=== PATIENT | female | born 1965 | race Caucasian/White ===

== ENCOUNTER 2021-05-27 06:19 | Day surgery (SDC) | payer OTHER ==
[~2021-05-27] VITALS: Ht 175.3 cm; Wt 99.8 kg
[2021-05-27] MEDS ORDERED: CLINDAMYCIN PHOS 600 MG/ D5W 50 ML PREMIX IV ONE (07:15)
[2021-05-27] MEDS ORDERED: CEFAZOLIN SOD 2 GM in D5W 50 ML IV ONE (07:15)
[2021-05-27] MEDS ORDERED: GLYCOPYRROLATE 0.2 MG/ML VIAL ONE (08:33)
[2021-05-27] MEDS ORDERED: MIDAZOLAM HCL 5 MG/5 ML VIAL ONE (08:33)
[2021-05-27] MEDS ORDERED: CLINDAMYCIN PHOSPHATE 600 mg/50mL D5W IV ONE (08:33)
[2021-05-27] MEDS ORDERED: DEXAMETHASONE SOD PHOSPHATE 4 MG/ML VIAL ONE (08:33)
[2021-05-27] MEDS ORDERED: LR 1,000 ML IV.SOLN IV ONE (08:33)
[2021-05-27] MEDS ORDERED: fentaNYL CITRATE 250 MCG/5 ML AMP ONE (08:33)
[2021-05-27] MEDS ORDERED: PROPOFOL 200MG/ 20ML VIAL (DIPRIVAN) IV ONE (08:33)
[2021-05-27] MEDS ORDERED: ROCURONIUM BROMIDE 10 MG/ML (ZEMURON) ONE (08:33)
[2021-05-27] MEDS ORDERED: PHENYLEPHRINE HCL 10 MG/ML VIAL (NEOSYNEPHRINE) ONE (08:33)
[2021-05-27] MEDS ORDERED: NS IRRIG SOLN 1000 ML IR ONE (08:33)
[2021-05-27] MEDS ORDERED: ePHEDrine sulfate 50 MG/ML VIAL ONE (08:33)
[2021-05-27] MEDS ORDERED: ONDANSETRON HCL 4 MG/2 ML VIAL ONE (08:33)
[2021-05-27] MEDS ORDERED: OXYMETAZOLINE HCL 0.05% NASAL SPRAY NS ONE (08:33)
[2021-05-27] MEDS ORDERED: METOCLOPRAMIDE HCL 10 MG/2 ML VIAL ONE (08:33)
[2021-05-27] MEDS ORDERED: SEVOFLURANE 15 MIN GAS INH ONE (08:33)
[2021-05-27] MEDS ORDERED: LIDOCAINE/EPI 1% 1:100000 20 ML VIAL INJ ONE (08:33)
[2021-05-27] MEDS ORDERED: KETOROLAC TROMETHAMINE 30 MG VIAL ONE (08:33)
[2021-05-27] MEDS ORDERED: NALOXONE HCL 0.4 MG/ML AMP (NARCAN) IVP PRN (09:45)
[2021-05-27] MEDS ORDERED: HYDROmorphone 1 MG/ML INJ. CARTRIDGE IVP PRN (09:45)
[2021-05-27] MEDS ORDERED: ONDANSETRON HCL 4 MG/2 ML VIAL IVP PRN ×2 (09:45→11:00)
[2021-05-27] MEDS ORDERED: KETOROLAC TROMETHAMINE 30 MG VIAL IVP PRN (09:45)
[2021-05-27] MEDS ORDERED: MEPERIDINE HCL/PF 25 MG/ML DISP.SYRIN IVP PRN (09:45)
[2021-05-27] MEDS ORDERED: LR 1,000 ML IV SCH (09:45)
[2021-05-27] MEDS ORDERED: HYDROcodone/ACETAMIN 5-325 MG TAB (NORCO/ VICODIN) PO PRN (11:00)
[2021-05-27] MEDS ORDERED: ONDANSETRON 4 MG ODT TAB PO PRN (11:00)
[2021-05-27 12:47] VITALS: BP_SYST 115
== END 2021-05-27 12:35 | disposition home or self-care (01) ==
LOC: SDS 06:19 → SMU 06:20 → SDS 12:35
PROVIDERS: ATTEND Otolaryngology
DX: J34.2 Deviated nasal septum (principal); F41.9 Anxiety disorder, unspecified; J31.0 Chronic rhinitis; J34.3 Hypertrophy of nasal turbinates; Z79.899 Other long term (current) drug therapy; Z20.822 Contact with and (suspected) exposure to COVID-19
CPT/HCPCS: 30140; 30520; 36415; 87426; J1100; J1885; J2250; J2370; J2405; J2704; J2765; J3010; J3490 ×2; J7120; U0003; J0690; J7060